=== PATIENT | female | born 2000 | race African-American/Black ===

== ENCOUNTER 2020-03-20 11:27 | Emergency (ER) | payer BC, SELFPAY ==
--- NOTE | ~2020-03-20 | US_ITS ---
EXAMINATION: US pelvic complete w TV DATE: 03/20/2020 15:26 INDICATION: Pelvic pain. TECHNIQUE: Multiple transabdominal and transvaginal sonographic images of the pelvis were obtained. COMPARISON: None. FINDINGS: TRANSABDOMINAL ULTRASOUND: The uterus measures 9.0 x 5.4 x 4.3 cm. There is no free fluid in the pelvis. TRANSVAGINAL ULTRASOUND: The endometrial complex measures 8 mm in thickness. The right ovary measures 3.0 x 2.1 x 1.6 cm. The left ovary measures 2.9 x 1.3 x 1.6 cm. There is normal vascular flow in the ovaries. IMPRESSION: 1. Normal pelvis. Reviewed, dictated and finalized at location B. IMPRESSION: 1. Normal pelvis.
--- NOTE | ~2020-03-20 | CT_ITS ---
EXAMINATION: CT abdomen pelvis w con DATE: 03/20/2020 17:10 INDICATION: Pelvic pain. History of chlamydia. TECHNIQUE: Computed tomography (CT) of the abdomen and pelvis was performed with 100 cc Omnipaque 350 intravenous contrast. The dose-length product was 302.18 mGy-cm. Automated exposure control and iter ative reconstruction technique were employed. COMPARISON: Ultrasound dated 03/20/2020. FINDINGS: Lung bases unremarkable. Heart size normal. No significant pleural or pericardial effusion. The liver, spleen, pancreas, adrenal glands and kidneys are unremarkable. Gallbladder is present. Non obstructive bowel gas pattern. Small fat-containing umbilical hernia. There are nabothian cysts. No f ree air or free fluid. Retroverted uterus. No acute osseous abnormality. IMPRESSION: 1. No acute abdominal abnormality. No findings to account for patient's symptoms. Reviewed, dictated and finalized at location A. IMPRESSION: 1. No acute abdominal abnormality. No findings to account for patient's symptom s.
[2020-03-20 12:07] VITALS: BP 136/80; PULSE 88; RESP 16; TEMP 36.8; O2SAT 98
[2020-03-20 12:32] LABS: Basophils Percent Auto 0.2 % (0.2-1.2); Eosinophils Percent Auto 0.6 % (0-4.4); Hematocrit 39.1 % (37.0-47.0); Immature Granulocyte Absolute 0.02 K/mm3 (0.00-0.031); Immature Granulocyte Percent A 0.4 % (0-0.5); Lymphocytes Absolute Auto 1.38 K/mm3 (0.9-3.2); Lymphocytes Percent Auto 27.6 % (18.3-44.2); Mean Corpuscular HGB Conc 33.2 g/dl (32-36); Mean Corpuscular Hemoglobin 29.3 pg (26-34); Mean Corpuscular Volume 88.3 fl (80-100); Mean Platelet Volume 10.8 fl (7.4-10.4); Monocytes Absolute Auto 0.4 K/mm3 (0.1-0.6); Monocytes Percent Auto 7.6 % (2.6-8.5); Neutrophils Absolute Auto 3.2 K/mm3 (1.3-6.7); Neutrophils Percent Auto 63.6 % (45.5-73.1); Platelet Count Result 219 k/mm3 (150-375); Red Blood Count 4.43 M/mm3 (4.2-5.4); Red Cell Distribution Width 13.2 % (11.5-14.5)
[2020-03-20 12:35] LABS: Add Urine Microscopic? YES; Appearance Urine Clear (Clear); Bilirubin Urine Negative (Negative); Blood Urine 2+ (Negative); Color Urine Yellow (Yellow); Glucose Urine UA Negative (Negative); Ketones Urine Negative (Negative); Leukocyte Esterase Ur Negative LEU/UL (Negative); Mucus Urine Rare /lpf; Nitrate Urine Negative (Negative); Protein Urine Negative (Negative); RBC Urine 0-2 /hpf (0-2); Squamous Epithelial Cell Urine Moderate /hpf (Few); Urobilinogen Urine Negative mg/dL (<2.0)
[2020-03-20 12:43] LABS: Alanine Aminotransferase 15 U/L (4-35); Albumin Level 4.5 g/dL (3.5-5.1); Alkaline Phosphatase 51 U/L (38-126); Anion Gap 8 mmol/L (8-16); Aspartate Amino Transferase 23 U/L (14-36); Bilirubin,Total 0.4 mg/dL (0.2-1.3); Blood Urea Nitrogen 15 mg/dL (7-17); Calcium 9.4 mg/dL (8.4-10.2); Carbon Dioxide 23 mmol/L (22-30); Chloride 107 mmol/L (98-107); Estimated CRCL calculation 99 ml/min; Estimated Glomerular Filt Rate > 60; Glucose 94 mg/dL (65-105); Lipase 94 U/L (23-300); Potassium 4.1 mmol/L (3.4-5.0); Sodium 138 mmol/L (137-145)
[2020-03-20 14:43] VITALS: BP 104/54; PULSE 88; RESP 16; TEMP 37.5; O2SAT 99
--- NOTE | 2020-03-20 14:46 | ED.ABDPAIN ---
HPI - Abdominal Pain General Chief Complaint: Urogenital-Female Stated Complaint: pelvic pain, n/v Time Seen by Provider: 03/20/20 14:42 History of Present Illness HPI narrative: Lower abdominal/pelvic pain for the past 2 months. No raiation. Associated with nausea. When the pain first started she was diagnosed with chlamydia and treated with 1 times antibiotic doses. She continued to have pain and went to urgent care where she was prescribed doxycycline for 7 days. She reports no change in the pain. No dyscharge, fever, constipation, diarrhea. Related Data Allergies Allergy/AdvReac Type Severity Reaction Status Date / Time No Known Allergies Allergy Verified 03/20/20 12:09 Review of Systems Review of Systems: All systems reviewed & are unremarkable except as noted in HPI and below Constitutional: Constitutional: Denies chills and Denies fever(s) Cardiovascular: Cardiovascular: Denies chest pain Respiratory: Respiratory: Denies dyspnea Gastrointestinal: Gastrointestinal: Reports abdominal pain, Denies constipation, Denies diarrhea, Reports nausea and Denies vomiting Genitourinary: Genitourinary: Denies hematuria, Denies nocturia, Denies dysuria, Reports pelvic pain and Denies vaginal discharge Musculoskeletal: Musculoskeletal: Denies back pain Neurologic: Denies weakness PMFSH Past Medical History Medical History Chlamydia Social History Social History Gender identity (if verbalized by the patient): Female Exam Const: General: healthy appearing, no acute distress and alert Orientation/consciousness: patient oriented x3 HENMT: Head: normal to inspection Neck: Neck: normal visual inspection and no lymphadenopathy Chest: Chest palpation & inspection: no tenderness Resp: Effort & Inspection: normal respiratory effort Auscultation: clear to auscultation bilaterally, no rales, no rhonchi and no wheezes Cardio: Jugular venous distension: no JVD Rate: regular rate Rhythm: regular rhythm Heart sounds: no murmurs GI: Inspection: non-distended GI Palp: Yes Soft to palpation and No Tenderness to palpation present (GI) : External Female Exam: normal external appearance Speculum Exam - Vagina: normal appearance of the vagina and normal vaginal discharge Speculum Exam - Cervix: normal appearance of the cervix Bimanual exam- vagina & uterus: no cervical motion tenderness Bimanual Exam- Adnexa, other: no masses Skin: General skin exam: normal color Neuro: General: patient oriented x3 and moves all extremities Speech: normal speech Extrem: General: no edema Psych: Appearance: well kempt Affect: normal affect Course Vital Signs Vital signs: Vital Signs Temperature 36.8 C 03/20/20 12:07 Pulse Rate 88 03/20/20 12:07 Respiratory Rate 16 03/20/20 12:07 Blood Pressure 136/80 03/20/20 12:07 Pulse Oximetry 98 03/20/20 12:07 Temperature 37.6 C 03/20/20 16:02 Pulse Rate 78 03/20/20 17:50 Respiratory Rate 12 03/20/20 17:50 Blood Pressure 110/75 03/20/20 17:50 Pulse Oximetry 100 03/20/20 17:50 MDM - Abdominal Pain MDM Narrative Medical decision making narrative: Exam essentially negative. I will hold off on additional antibiotics at this time. CT and US negative. Differential Diagnosis Differential diagnosis: Likely abdominal pain, constipation, endometriosis and other (TOA, PID, cervicitis) Medical Records Attestation: I reviewed the patient's medical records. Lab Data Attestation: I reviewed the patient's lab results. Result diagrams: 03/20/20 12:11 03/20/20 12:11 Labs: Lab Results 03/20/20 03/20/20 03/20/20 Range/Units 12:11 12:11 12:11 WBC 5.0 (4.5-10.0) K/mm3 RBC 4.43 (4.2-5.4) M/mm3 Hgb 13.0 (12.0-15.0) g/dL Hct 39.1 (37.0-47.0) % MCV 88.3 (80-100) fl MCH 29.3 (26-34) pg MC
[2020-03-20 16:02] VITALS: BP 115/64; PULSE 55; RESP 18; TEMP 37.6; O2SAT 100
[2020-03-20] MEDS: KETOROLAC 30 MG/ML VIAL (*BKC) IV PUSH (16:09)
[2020-03-20 17:50] VITALS: BP 110/75; PULSE 78; RESP 12; O2SAT 100
== END 2020-03-20 17:54 | disposition home or self-care (01) ==
PROVIDERS: Emergency Medicine; Physician Assistant; Emergency Provider Emergency Medicine; PCP Emergency Medicine
DX: R10.30 Lower abdominal pain, unspecified (principal)
CPT/HCPCS: 36415; 74177; 76830; 76856; 80053; 81001; 81025; 83690; 85025; 87070; 87077; 87086; 87088; 87491; 87591; 87808; 96374; 99284; J1885; Q9967

== ENCOUNTER 2020-09-20 08:37 | Emergency (ER) | payer BC, SELFPAY ==
--- NOTE | ~2020-09-20 | XR_ITS ---
XR knee LT 3V DATE: 09/20/2020 09:07 INDICATION: Fell on broken glass. Laceration. TECHNIQUE: 3 views including crosstable lateral COMPARISON: None FINDINGS: No radiopaque soft tissue foreign body. No fracture, dislocation or joint effusion. Spaces are preserved. No radiopaque and radiolucent body or chondrocalcinosis. IMPRESSION: Negative Reviewed, dictated and finalized at location A. 

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
[2020-09-20 08:46] VITALS: BP 115/77; PULSE 88; RESP 18; TEMP 36.4; O2SAT 99
[2020-09-20] MEDS: TETANUS,DIPHTHERIA,AC PERTUSSIS ADULT (0.5 ML) BOOSTRIX IM (09:07)
== END 2020-09-20 10:41 | disposition home or self-care (01) ==
PROVIDERS: Emergency Provider Emergency Medicine; PCP Emergency Medicine
DX: S81.012A Laceration without foreign body, left knee, initial encounter (principal); Z23 Encounter for immunization; W25.XXXA Contact with sharp glass, initial encounter
CPT/HCPCS: 12032; 73562; 90471; 90715; 99284